=== PATIENT | male | born 2000 | race Two or more races ===

== ENCOUNTER 2022-06-21 10:10 | Emergency (ER) | payer OTHER ==
[~2022-06-21] VITALS: Ht 162.6 cm; Wt 41.7 kg
[~2022-06-21 10:10] MED LIST: SOMATROPIN IM
== END 2022-06-21 14:00 | disposition home or self-care (01) ==
LOC: EMR PED 10:10
DX: E80.4 Gilbert syndrome (principal); Z20.822 Contact with and (suspected) exposure to COVID-19; R07.89 Other chest pain